=== PATIENT | male | born 1960 | race Caucasian/White ===

== ENCOUNTER → 2024-12-06 09:02 | Outpatient (REF) | payer OTHER, SELFPAY | LOC: HWRCS 09:02 | PROVIDERS: ATTENDING PHYSICIAN Internal Medicine; FAMILY PHYSICIAN Internal Medicine | DX: I10 Essential (primary) hypertension (principal); E78.00 Pure hypercholesterolemia, unspecified; F17.290 Nicotine dependence, other tobacco product, uncomplicated; E66.3 Overweight | CPT/HCPCS: 93306 ==